=== PATIENT | female | born 1955 | race African-American/Black ===

== ENCOUNTER 2018-08-14 11:44 | Emergency (ER) | payer BC, OTHER ==
[2018-08-14 11:54] VITALS: TEMP 97.3; BMI 30.5
--- NOTE | 2018-08-14 12:36 | PDOC ---
History of Present Illness - General Chief Complaint: Eye Problem Stated Complaint: RT EYE PROBLEM Time Seen by Provider: 08/14/18 12:33 History Source: Patient, Old Records Exam Limitations: No Limitations - History of Present Illness Initial Comments: HPI: 62 y/o female presenting to [facility] ER complaining of redness and crusting to her right eye. First noticed redness approx. 2 weeks ago. Applied OTC Visine drops, which improved the redness temporarily. Has been experiencing morning crusting in the right eye for the past three days. Denies headache, eye pain, or decreased/blurry vision. Pt does not wear contacts. Denies sensation of foreign body. Pt was found to be hypertensive in triage. 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 States she has refills pending. 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 and chronic SOB Past History - Past Medical History Allergies/Adverse Reactions: Allergies Allergy/AdvReac Type Severity Reaction Status Date / Time No Known Allergies Allergy Verified 08/14/18 11:54 Home Medications: Ambulatory Orders Amlodipine Besylate [Norvasc -] 10 mg PO DAILY #30 tablet 07/21/13 Aspirin [ASA -] 325 mg PO DAILY #30 tablet 07/21/13 Atenolol [Tenormin -] 100 mg PO DAILY #30 tablet 07/21/13 Atorvastatin Ca [Lipitor] 40 mg PO HS #30 tablet 07/21/13 Clonidine HCl 0.2 mg PO BID #60 tablet 07/21/13 Hydrochlorothiazide [Hctz -] 25 mg PO DAILY #30 tablet 07/21/13 Outpatient Physical Therapy #0 07/21/13 Walker [[place] Rolling Walker] 1 each MC DAILY #0 each 07/21/13 Polymyxin B Sulfate/Tmp [Polytrim Opthalmic Solution -] 2 drop OP Q4H #1 bottle 08/14/18 COPD: No HTN: Yes (non compliant with meds x 1 month) - Suicide/Smoking/Psychosocial Hx Smoking History: Never smoked Have you smoked in the past 12 months: Yes Number of Cigarettes Smoked Daily: 4 'Breaking Loose' booklet given: 07/19/13 Hx Alcohol Use: No Review of Systems - Review of Systems Able to Perform ROS?: Yes Comments:: In addition to that documented in the HPI above, the additional ROS was obtained : Constitutional: Denies fevers or chills Head: Denies vision changes ENMT: Denies sore throat CV: Denies chest pain Resp: Denies acute SOB GI: Denies vomiting or diarrhea : Denies painful urination MSK: Denies recent trauma Skin: Denies new rashes Neuro: Denies new numbness or tingling or weakness Endocrine: Denies polyuria Heme: Denies bleeding or bruising *Physical Exam - Vital Signs Last Vital Signs Temp Pulse Resp BP Pulse Ox 97.3 F L 83 18 202/112 H 99 08/14/18 11:49 08/14/18 11:49 08/14/18 11:49 08/14/18 11:49 08/14/18 11:49 - Physical Exam Comments: Constitutional: Non-toxic adult female in no acute distress or obvious discomfort. Obese body habitus. Found standing next to hospital bed. Alert and oriented x4. Answered all questions appropriately and completely. Speech was non -labored, non-pressured. Head: Normocephalic. No obvious external signs of trauma. No tenderness to R or L temporal region. Eyes: Right conjunctiva injected. No purulent drainage. Pupils 4mm and PERRL bilaterally. EOMI and nonpainful. Visual acuity 20/25 in R and L eye. No fluorescein uptake. Ears: Hearing grossly intact. Nose: No nasal discharge. Neck: Supple, trachea is midline. Cardiovascular / Chest: Regular rate and regular rhythm. No murmur, rubs, clicks, or gallops. Peripheral pulses: radial pulses full. Respiratory: Breathing unlabored. Equal chest rise and fall. Clear to auscultation bilaterally. No stridor, no wheezing, no rhonchi. Gastrointestinal: abdomen is soft, non-tender, non-distended. Neuro: Alert and oriented. Moving all four extremities spontaneously. No focal deficits. Cranial nerves intact. Sensation to all four extremities intact. Upper and lower extremities: proximal and distal strength 5/5. Inventory And Pricing Associate strength 5/ 5 - equal and symmetric. Plantar flexion and dorsiflexion 5/5. Intact rapid alternating movements and heel to medel. No nuchal rigidity. Skin: Warm, dry, and intact. Psych: Affect: appropriate. Mood: normal. Moderate Sedation - Procedure Monitoring Vital Signs: Procedure Monitoring Vital Signs Temperature 97.3 F L 08/14/18 11:49 Pulse Rate 83 08/14/18 11:49 Respiratory Rate 18 08/14/18 11:49 Blood Pressure 202/112 H 08/14/18 11:49 O2 Sat by Pulse Oximetry (%) 99 08/14/18 11:49 ED Treatment Course - Medications Given in the ED: ED Medications Discontinued Medications Generic Name Dose Route Start Last Admin Trade Name Ting PRN Reason Stop Dose Admin Amlodipine Besylate 10 mg 08/14/18 13:25 08/14/18 13:35 Norvasc - PO 08/14/18 13:26 10 mg ONCE ONE Administration Erythromycin 1 applic 08/14/18 13:25 08/14/18 13:41 Erythromycin 0.5% Eye Ointment OD 08/14/18 13:26 1 applic ONCE ONE Administration Fluorescein Sodium 1 ea 08/14/18 13:40 08/14/18 13:46 Fluorets - OD 08/14/18 13:41 1 ea ONCE ONE Administration Medical Decision Making - Medical Decision Making *Reviewed vital signs, nursing notes, and prior visit documentation (if available). 62 y/o female complaining of 2 weeks of unilateral eye redness and 3 days of morning crusting. Afebrile. Suspect bacterial conjunctivitis. Administered dose of erythromycin in the department. Will prescribe 7 day course of OD ciprofloxacin. Pt states she will follow up with her opthamologist clinic within the next week. Pt hypertensive consistent with history of HTN and medication non-compliance. Neurologically intact on physical exam. Suspect pt chronically lives at a similar pressure. Will administer dose of home Amlodipine and trend BP. Pt states she has refills of medications available at her pharmacy and will restart taking the medication. Repeat diastolic has improved on recheck. Pt continues to deny complaints beyond her eye. Will discharge and have pt f/u with PCP. Will refer pt to [facility] to establish primary care. *DC/Admit/Observation/Transfer Diagnosis at time of Disposition: Conjunctivitis Qualifiers: Conjunctivitis type: acute Acute conjunctivitis type: unspecified Laterality: right Qualified Code(s): H10.31 - Unspecified acute conjunctivitis, right eye Hypertension Qualifiers: Hypertension type: unspecified Qualified Code(s): I10 - Essential (primary) hypertension - Discharge Dispostion Disposition: HOME Condition at time of disposition: Good Decision to Admit order: No - Prescriptions Prescriptions: Polymyxin B Sulfate/Tmp [Polytrim Opthalmic Solution -] 2 drop OP Q4H #1 bottle - Referrals Referrals: [facility] [place] [Provider Group] - Patient Instructions Printed Discharge Instructions: DI for Conjunctivitis Additional Instructions: You were seen today for right eye redness and morning crusting. Your symptoms are likely because of a bacterial infection in your eye. I have sent a prescription for an antibiotic Polymyxin B to your pharmacy. Take as directed on the package insert. Follow up with your eye doctor within the next week to make sure you are healing. 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 You need to take these! I have entered a referral for you to see a primary care physician at [facility] [place] primary care clinic. You will need to call to make an appointment in the next 2-4 days. The telephone number is [phone]. The address is: [facility] [place] [place] [address] Go to the nearest emergency department if your condition worsens or you feel like you need additional emergency evaluation. Print Language: IRISH - Post Discharge Activity
[2018-08-14] MEDS ORDERED: ERYTHROMYCIN 0.5% OPHTHALMIC OINTMENT 3.5 GM TUBE OD ONE (13:25)
[2018-08-14] MEDS ORDERED: amLODIPine BESYLATE 10 MG TABLET (FP) PO ONE (13:25)
[2018-08-14] MEDS ORDERED: ERYTHROMYCIN 0.5% OPHTHALMIC OINTMENT 3.5 GM TUBE ONE (13:32)
[2018-08-14] MEDS ORDERED: amLODIPine BESYLATE 5 MG TABLET (FP) ONE (13:33)
[2018-08-14] MEDS ORDERED: FLUORESCEIN NA 1 EA STRIP OD ONE (13:40)
[2018-08-14] MEDS ORDERED: FLUORESCEIN NA 1 EA STRIP ONE (13:45)
--- NOTE | 2018-08-14 13:57 | PDOC ---
Attending Attestation - Resident Resident Name: Steve Mitchell - ED Attending Attestation I have performed the following: I have examined & evaluated the patient, The case was reviewed & discussed with the resident, I agree w/resident's findings & plan, Exceptions are as noted - HPI HPI: 08/14/18 13:55 This patient is a 62 year old female, with PMHx of HTN, CVA (2013) with residual left eye visual deficits, who is presenting with 2 weeks of right eye erythema and 3 days of morning crusting. Patient states that she has been non compliant with her usual blood pressure meds for the past month. Denies headache. Denies any eye pain, blurriness, FB sensation or use of contacts. Denies any systemic changes including fevers or chills. Denies CP, SOB, focal weakness/ numbness. - Physicial Exam PE: 08/14/18 14:04 agree with resident exam R eye with EOMI, reactive to light, +conjuntival injection. No disc edema. 20/ 25 vision with eyeglasses. No temporal ttp - Medical Decision Making 08/14/18 14:05 62yo F presents to the ED with 2 weeks of R eye redness, now with crusting in the morning. Story consistent with conjuctivitis, viral vs bacterial. Normal visual acuity, and pupil reactive, thus low likelihood closed angle glaucoma. No concern for temporal arteritis as no headache, no temporal ttp and pt has normal vision. Vitals with elevated BP on arrival as pt has been non compliant with BP meds for 1 month Pt is asymptomatic, other than eye redness and crusting. She has no headache, weakness, numbness, CP, SOB, LE edema. Plan to give home dose of amlodipine and reassess BP 08/14/18 15:23 Rpt BP 200/100 Will refrain on lowering BP too much more as pt likely lives in 200s/100s O2 sat 94%, however on my check, O2 sat 96%. Lungs are clear, pt with no SOB Pt remains asymptomatic, other than eye complaint Requests DC home, states she will take her BP medications as prescribed as soon as she gets home I discussed the physical exam findings, ancillary test results and final diagnoses with the patient. I answered all of the patient's questions. The patient was satisfied with the care received and felt comfortable with the discharge plan and treatment plan. The patient will call their primary care physician within 24 hours to arrange follow-up and will return to the Emergency Department with any new, persistent or worsening symptoms.
[2018-08-14 15:12] VITALS: BP 200/100; PULSE 73
== END 2018-08-14 15:25 | disposition home or self-care (01) ==
LOC: JER 11:44 → JERFT 11:44 → JER 15:25
DX: H10.31 Unspecified acute conjunctivitis, right eye (principal); I10 Essential (primary) hypertension; Z91.14 Patient's other noncompliance with medication regimen; I69.898 Other sequelae of other cerebrovascular disease; H91.8X2 Other specified hearing loss, left ear; R06.02 Shortness of breath; R26.89 Other abnormalities of gait and mobility; Z99.89 Dependence on other enabling machines and devices
CPT/HCPCS: 99283-25

== ENCOUNTER 2020-06-24 09:55 | Emergency (ER) | payer SELFPAY ==
[2020-06-24 10:07] VITALS: BP 144/62; PULSE 57; TEMP 98.5; BMI 42.0
== END 2020-06-24 10:58 | disposition home or self-care (01) ==
LOC: JERFT 09:55
DX: M79.672 Pain in left foot (principal)
CPT/HCPCS: 73610-TC-LT-FY; 73630-TC-LT; 99284-25

== ENCOUNTER 2020-10-29 17:58 | Emergency (ER) | payer SELFPAY ==
[2020-10-29 18:03] VITALS: BP 131/78; PULSE 66; TEMP 97.9; BMI 43.7
[2020-10-29 19:25] LABS: EPI CELLS 5 /uL (0-25.1); HYALINE CASTS 0 /uL (0-3.1); PH,URINE 5.5 (5.0-8.0); URINE APPEARANCE CLEAR; URINE BACTERIA 486 /uL (0-1359); URINE BILIRUBIN NEGATIVE (NEGATIVE); URINE COLOR YELLOW; URINE GLUCOSE (UA) NEGATIVE (NEGATIVE); URINE KETONE NEGATIVE (NEGATIVE); URINE LEUK ESTERASE NEGATIVE (NEGATIVE); URINE NITRITE NEGATIVE (NEGATIVE); URINE PROTEIN NEGATIVE (NEGATIVE); URINE WBC 4 /uL (0-25.8)
[2020-10-29 19:46] LABS: BASO % 0.3 % (0-2.0); HEMATOCRIT 42.3 % (32.4-45.2); HEMOGLOBIN 14.1 GM/dL (10.7-15.3); LYMPH % 32.6 % (8-40); MCHC 33.4 g/dl (32.0-36.0); MEAN CELL VOLUME 86.8 fl (80-96); MEAN PLT VOLUME 9.9 fl (7.5-11.1); MONO % 7.8 % (3.8-10.2); NEUT % 57.3 % (42.8-82.8); PLATELET COUNT 221 K/MM3 (134-434); RBC 4.88 M/mm3 (3.60-5.2); RDW 15.1 % (11.6-15.6)
[2020-10-29 20:07] LABS: ALBUMIN 3.8 g/dl (3.4-5.0); CALCIUM 9.2 mg/dL (8.5-10.1)
[2020-10-29 20:08] LABS: BLOOD UREA NITROGEN 17.6 mg/dL (7-18)
[2020-10-29 20:10] LABS: CREATININE 1.4 mg/dL (0.55-1.3)
[2020-10-29 20:12] LABS: BILIRUBIN,TOTAL 0.5 mg/dL (0.2-1); TOT PROT 8.6 g/dl (6.4-8.2)
[2020-10-29] MEDS ORDERED: POTASSIUM CHLORIDE ORAL LIQUID 20 MEQ/15 ML PO ONE (20:14)
[2020-10-29] MEDS ORDERED: POTASSIUM CHLORIDE ORAL LIQUID 20 MEQ/15 ML ONE (20:20)
[2020-10-29 20:31] LABS: URINE RBC 78.3 /uL (0-23.9); YEAST NONE SEEN (NEGATIVE)
== END 2020-10-29 20:37 | disposition home or self-care (01) ==
LOC: JER 17:58
DX: N95.0 Postmenopausal bleeding (principal)
CPT/HCPCS: 36415; 80053; 81003; 83690; 85025; 86850; 86900; 86901; 87086; 99283-25

== ENCOUNTER 2023-08-31 15:52 | Emergency (ER) | payer OTHER ==
[2023-08-31 16:01] VITALS: PULSE 74; RESP 18; TEMP 97.9; BMI 39.4
[2023-08-31 16:06] VITALS: BP 150/69
== END 2023-08-31 18:19 | disposition home or self-care (01) ==
LOC: JER 15:52
DX: I10 Essential (primary) hypertension (principal)
CPT/HCPCS: 99282-25

== ENCOUNTER 2024-03-06 15:33 | Emergency (ER) | payer OTHER ==
[2024-03-06 16:00] VITALS: BP 154/92; PULSE 89; RESP 18; TEMP 98.3; BMI 40.3
[2024-03-06] MEDS ORDERED: LIDOCAINE HCL 1%, 10 MG/ML (20ML VIAL) ONE (17:03)
[2024-03-06] MEDS: LIDOCAINE HCL 1%, 10 MG/ML (50 mL VIAL) INF ONE (17:09)
== END 2024-03-06 17:57 | disposition home or self-care (01) ==
LOC: JERFT 15:33
PROC: 0H99XZZ Drainage of Perineum Skin, External Approach (ICD-10-PCS; principal; 2024-03-06)
DX: N76.4 Abscess of vulva (principal)
CPT/HCPCS: 56405; 99283-25

== ENCOUNTER 2024-03-08 12:53 | Emergency (ER) | payer OTHER ==
[2024-03-08 13:03] VITALS: BP 169/92; PULSE 82; RESP 16; TEMP 98; BMI 39.4
== END 2024-03-08 13:59 | disposition home or self-care (01) ==
LOC: JERFT 12:53 → JER 12:53 → JERFT 13:59
DX: Z48.01 Encounter for change or removal of surgical wound dressing (principal)
CPT/HCPCS: 99281-25